=== PATIENT | female | born 1985 | race Hispanic/Latino ===

== ENCOUNTER 2019-07-20 | Emergency (ER) | payer MEDICARE | END 2019-07-20 21:11 | disposition home or self-care (01) | DX: K02.9 Dental caries, unspecified (principal); Z98.890 Other specified postprocedural states ==

== ENCOUNTER 2019-09-08 23:01 | Inpatient (IN) | payer MEDICARE ==
[~2019-09-08] VITALS: Ht 154.9 cm; Wt 76.3 kg
[~2019-09-08 23:01] MED LIST: ALPR1TAB5 PO; QUET25TA PO
[2019-09-08 23:43] LABS: BASOPHILS % (AUTO) 0.3 % (0.0-5.0); EOSINOPHILS % (AUTO) 0.5 % (0.0-8.0); HEMATOCRIT 41.3 % (36-48); LYMPHOCYTES % (AUTO) 20.4 % (21.0-51.0); MEAN CORPUSCULAR HEMOGLOBIN 29.7 pg (27.0-33.0); MEAN CORPUSCULAR HGB CONC 33.4 g/dL (32.0-36.0); MONOCYTES % (AUTO) 6.8 % (3.0-13.0); NEUTROPHILS % (AUTO) 71.5 % (40.0-77.0); PLATELET COUNT (AUTO) 362 K/uL (130-400); RED BLOOD CELL COUNT(AUTO) 4.64 MIL/uL (4.00-5.50); RED CELL DISTRIBUTION WIDTH 12.4 % (11.0-15.5); WHITE BLOOD COUNT (AUTO) 15.5 K/uL (4.8-10.8)
[2019-09-08 23:44] LABS: APPEARANCE,URINE Cloudy (CLEAR); BILIRUBIN,URINE Negative (NEGATIVE); COLOR,URINE Yellow (YELLOW); GLUCOSE, URINE (UA) Negative (NEGATIVE); KETONES,URINE Trace mg/dL (NEGATIVE); LEUKOCYTE ESTERASE ,URINE Moderate (NEGATIVE); NITRATE,URINE Positive (NEGATIVE); OCCULT BLOOD,URINE Negative (NEGATIVE); PROTEIN,URINE Negative (NEGATIVE)
[2019-09-08 23:45] LABS: CREATININE 0.8 mg/dL (0.5-1.5); POTASSIUM 3.5 mmol/L (3.5-5.1)
[2019-09-08 23:48] LABS: HCG,QUAL RESULT NEGATIVE (NEGATIVE)
[2019-09-08 23:49] LABS: ALBUMIN 3.6 g/dL (3.5-5.0); BILIRUBIN,TOTAL 0.3 mg/dL (0.2-1.0); TOTAL PROTEIN, SERUM 8.8 g/dL (6.0-8.3)
[2019-09-08] MEDS ORDERED: SODIUM CHLORIDE 0.9% 1000ML 1,000 ML IV ONE (23:50)
[2019-09-08] MEDS ORDERED: ONDANSETRON HCL 4 MG/2 ML VIAL ONE (23:50)
[2019-09-08] MEDS ORDERED: MORPHINE SULFATE 4 MG/1ML SYG ONE (23:51)
[2019-09-08 23:53] LABS: BACTERIA,URINE Many /HPF (None Seen); RBC,URINE 0-1 /HPF (0-1)
[2019-09-09] MEDS ORDERED: CEFTRIAXONE SODIUM 1 GM ONE (00:37)
[2019-09-09] MEDS ORDERED: SODIUM CHLORIDE 0.9% 100 ML IV ONE (00:37)
[2019-09-09] MEDS ORDERED: MORPHINE SULFATE 4 MG/1ML SYG ONE (00:37)
[2019-09-09] MEDS: SODIUM CHLORIDE 0.9% 1000ML 1,000 ML IV SCH ×3 (00:38→17:46)
[2019-09-09] MEDS ORDERED: ACETAMINOPHEN 325 MG TAB PO PRN ×2 (04:30)
[2019-09-09] MEDS ORDERED: ONDANSETRON HCL 4 MG/2 ML VIAL IV PRN (04:30)
[2019-09-09] MEDS ORDERED: LACTULOSE 20 GM/30 ML UDCUP PO PRN (04:30)
[2019-09-09] MEDS ORDERED: HYDRALAZINE HCL 20 MG/ML VIAL IV PRN (04:30)
[2019-09-09] MEDS ORDERED: ZOSYN 3.375GM+NS 50ML 50 ML IV ONE ×3 (04:39→20:14)
[2019-09-09] MEDS: ZOSYN 3.375GM+NS 50ML 50 ML IV SCH ×3 (05:00→21:00)
[2019-09-09] MEDS ORDERED: PHARMACY COMMUNICATION MISC SCH (05:30)
[2019-09-09 06:20] LABS: CRP QUANTITATIVE 70.3 mg/L (0.00-9.0)
[2019-09-09] MEDS ORDERED: KETOROLAC TROMETHAMINE 30MG/ML IV PRN (06:30)
[2019-09-09] MEDS ORDERED: KETOROLAC TROMETHAMINE 30MG/ML ONE ×3 (06:31→18:31)
[2019-09-09 06:56] LABS: HEMOGLOBIN A1C 5.8 % (4.0-6.0)
[2019-09-09] MEDS: ENOXAPARIN SODIUM 40 MG/0.4 ML SYRINGE SQ SCH (09:00)
[2019-09-09] MEDS: FAMOTIDINE 20MG TAB 20 MG TAB PO SCH ×2 (09:00→21:00)
[2019-09-09] MEDS ORDERED: FAMOTIDINE 20MG TAB 20 MG TAB ONE ×2 (09:09→20:14)
[2019-09-09] MEDS ORDERED: ACETAMINOPHEN 325 MG TAB ONE (13:10)
[2019-09-09] MEDS ORDERED: ACETAMINOPHEN ELIXIR 325 MG/10.15ML UDCUP ONE (22:02)
[2019-09-09 23:15] VITALS: BP 115/69
[2019-09-10] MEDS: SODIUM CHLORIDE 0.9% 1000ML 1,000 ML IV SCH ×3 (00:26→17:05)
[2019-09-10 04:00] VITALS: BP 104/69
[2019-09-10] MEDS: ZOSYN 3.375GM+NS 50ML 50 ML IV SCH ×3 (05:26→22:31)
[2019-09-10 08:00] VITALS: BP 122/74
[2019-09-10] MEDS: FAMOTIDINE 20MG TAB 20 MG TAB PO SCH ×2 (10:01→22:31)
[2019-09-10] MEDS: ENOXAPARIN SODIUM 40 MG/0.4 ML SYRINGE SQ SCH (10:05)
[2019-09-10 11:00] VITALS: BP 112/76
--- NOTE | 2019-09-10 12:05 | NUR ---
PAGED AJ TRAUMA NURSE RE; PAIN MED PT STATES KETOROLAC IS NOT WORKING. OKAY TO GIVEN ONE TIME DOSE OF DILAUDID AND MAY START TYLENOL W/ CODEINE. ORDERS ENTERED.
--- NOTE | 2019-09-10 13:01 | NUR ---
CHART CHECK COMPLETED. Pt IS A 34 Y.O. FEMALE ADMITTED SECONDARY TO SEPSIS DUE TO URINARY TRACT INFECTION, ACUTE HYPONATREMIA. Pt HAS A PAST MEDICAL HISTORY SIGNIFICANT FOR , TUBAL LIGATION, CHOLECYSTECTOMY. Pt CURRENTLY ON REGULAR TEXTURE,THIN LIQUID DIET. PLEASE REQUEST FORMAL SKILLED SPEECH/SWALLOW EVALUATION IF Pt PRESENTS WITH +S/S OF ASPIRATION SUCH COUGH RESPONSE, THROAT CLEAR, OR WET VOCAL QUALITY DURING P.O. Addendum: 09/10/19 at 1302 by BILL BELLO, [facility] Amended: Links added.
[2019-09-10] MEDS ORDERED: HYDROMORPHONE HCL 0.5 MG/0.5 ML ML IVP SCH (14:15)
[2019-09-10] MEDS ORDERED: ACETAMINOPHEN-CODEINE 300/30MG TAB PO PRN (14:45)
--- NOTE | 2019-09-10 15:30 | NUR ---
AJ RECORD PRESSMAN PAGED RE; PT NEGATIVE FOR COVID 19 STATES MAY TRANSFER TO MEDICAL ONCE THERE IS A BED.
[2019-09-10 16:00] VITALS: BP 124/60
[2019-09-10 20:44] VITALS: BP 138/87
[2019-09-11 00:13] VITALS: BP 105/61
[2019-09-11] MEDS: SODIUM CHLORIDE 0.9% 1000ML 1,000 ML IV SCH ×2 (00:26→04:48)
--- NOTE | 2019-09-11 01:07 | NUR ---
PT TRANSFERRED TO ROOM [id number] BY ABELARDO COTTRELL VIA WHEELCHAIR. PT AAOx3. C/O HEADACHE AND TEMP OF 99.0, TYLENOL 650MG GIVEN. REPORT GIVEN TO RACH MCCARTHY.
[2019-09-11 04:26] VITALS: BP 105/77
[2019-09-11] MEDS: ZOSYN 3.375GM+NS 50ML 50 ML IV SCH (05:41)
[2019-09-11 06:23] LABS: BASOPHILS % (AUTO) 0.4 % (0.0-5.0); EOSINOPHILS % (AUTO) 1.2 % (0.0-8.0); HEMATOCRIT 33.1 % (36-48); LYMPHOCYTES % (AUTO) 24.3 % (21.0-51.0); MEAN CORPUSCULAR HEMOGLOBIN 30.3 pg (27.0-33.0); MEAN CORPUSCULAR HGB CONC 34.1 g/dL (32.0-36.0); MEAN CORPUSCULAR VOLUME 88.7 fL (79-99); MONOCYTES % (AUTO) 10.3 % (3.0-13.0); NEUTROPHILS % (AUTO) 63.5 % (40.0-77.0); PLATELET COUNT (AUTO) 264 K/uL (130-400); RED BLOOD CELL COUNT(AUTO) 3.73 MIL/uL (4.00-5.50); RED CELL DISTRIBUTION WIDTH 12.5 % (11.0-15.5); WHITE BLOOD COUNT (AUTO) 6.9 K/uL (4.8-10.8)
[2019-09-11 06:38] LABS: CREATININE 0.6 mg/dL (0.5-1.5); POTASSIUM 3.4 mmol/L (3.5-5.1)
[2019-09-11 07:30] VITALS: BP 108/69
--- NOTE | 2019-09-11 09:39 | NUR ---
ASHA- SPOKE TO PATIENT FOR DC PLANNING PATIENT LIVES WITH MINOR DAUGHTER- DISABLED DUE TO 'DEPRESSION AND SOME KIND OF DISABILITY WITH MY LEARNING?" DRIVES 'BUT NOT MUCH', HER MOM CHRISTIAN DOES THE DRIVING MOSTLY. USES NO DME, HOME IS SAFE AND ACCESSIBLE. HAS NO BP CUFF OR GLUCOMETER, WAS A PATIENT OF [employer] IN THE PAST BUT SWITCHED TO DR. DEY. MOM WILL TRANSPORT, DCP HOME Addendum: 09/11/19 at 0944 by WIN RODRIGUEZ RN CM Amended: Links added.
[2019-09-11] MEDS ORDERED: AMOX250S7 PO (10:23)
[2019-09-11] MEDS: FAMOTIDINE 20MG TAB 20 MG TAB PO SCH (10:24)
[2019-09-11] MEDS: ENOXAPARIN SODIUM 40 MG/0.4 ML SYRINGE SQ SCH (10:28)
[2019-09-11 11:00] VITALS: BP 110/66
--- NOTE | 2019-09-11 12:00 | NUR ---
DISCHARGE instructions discussed with pt voices understanding
[2019-09-11] MEDS ORDERED: CEPHALEXIN 500 MG CAPSULE PO ONE (14:55)
[2019-09-11] MEDS ORDERED: CEPHALEXIN 500 MG CAPSULE PO SCH (21:00)
== END 2019-09-11 15:55 | disposition home or self-care (01) | DRG 872 ==
LOC: EDH 23:01 → EDHIP 09-09 04:26 → 4CH 09-09 22:47 → 3DH 09-11 00:45
PROVIDERS: ADMIT Internal Medicine; ATTEND Internal Medicine
DX: A41.9 Sepsis, unspecified organism (principal); N39.0 Urinary tract infection, site not specified; E87.1 Hypo-osmolality and hyponatremia; F32.9 Major depressive disorder, single episode, unspecified; Z20.828 Contact with and (suspected) exposure to other viral communicable diseases; E66.9 Obesity, unspecified; Z68.31 Body mass index [BMI] 31.0-31.9, adult; Z83.3 Family history of diabetes mellitus; Z82.5 Family history of asthma and other chronic lower respiratory diseases; Z82.49 Family history of ischemic heart disease and other diseases of the circulatory system; Z82.0 Family history of epilepsy and other diseases of the nervous system; Z82.3 Family history of stroke; Z90.49 Acquired absence of other specified parts of digestive tract
CPT/HCPCS: 36415; 74176; 76856; 80048; 80053; 81001; 81025; 83036; 83605; 83690; 84145; 85025; 86140; 87040; 87077; 87088; 87186; 87426; 99291; G0378; J0696; J1170; J1650; J1885; J2270; J2405; J2543; J7030; U0003